=== PATIENT | female | born 1995 | race Caucasian/White ===

== ENCOUNTER → 2023-06-08 | Outpatient (CLI) | payer OTHER ==
--- NOTE | 2023-06-08 16:27 | US ---
EXAMINATION TYPE: Transabdominal DATE OF EXAM: 06/08/2023 3:19 PM COMPARISON: NONE CLINICAL INDICATION: Female, 27 years old with history of Z34.90 ENCNTR FOR SUPRVSN OF NORM; Patient believes she is 10 weeks. G1. EXAM PERFORMED: Transabdominal (TA) EXAM MEASUREMENTS: GESTATIONAL AGE / DATING Physician Established: Not yet established Dates by LMP: Unknown per patient Dates by First Scan: This is first scan Dates by Current Scan for: (11 weeks/2 days) EDC: 12/26/2023 MATERNAL ANATOMY Uterus: 12.3 x 10.6 x 8.7 cm Right Ovary: Appears wnl Left Ovary: Appear wnl Post CDS / Adnexa: Appear wnl Presence of free fluid: None seen Presence of corpus luteal cyst: Not seen Presence of subchorionic bleed: *Complex area seen to the right of the gestational sac: 1.7 x 0.5 x 0 .4 cm. GESTATION / SURVEY CRL: 43.60 mm (11 weeks/2 days) Yolk Sac (normal less than 6mm): 3.6 mm Heart Rate: 167 bpm Rhythm: Normal IUP: Viable IUP Nuchal Translucency 10-14wks (normal less than 3mm): Unable to clearly visualize. Date of LMP: Unknown per patient Beta HcG (if available): Not available IMPRESSION: 1. Single viable intrauterine . 2. Subchorionic hemorrhage.
== END | disposition home or self-care (01) ==
LOC: RADUSWWP 14:43
PROVIDERS: ATTEND Obstetrics & Gynecology
DX: Z34.90 Encounter for supervision of normal pregnancy, unspecified, unspecified trimester (principal)
CPT/HCPCS: 76801

== ENCOUNTER 2023-11-03 12:41 | Outpatient (CLI) | payer OTHER ==
[2023-11-03 14:15] VITALS: BP 128/75; PULSE 108; RESP 16; TEMP 97.7
--- NOTE | 2023-11-13 11:14 | P.MSEPDOC ---
Presenting Problems - Arrival Data Date of Arrival on Unit: 11/03/23 Time of Arrival on Unit: 12:41 Mode of Transport: Ambulatory - Complaint OB-Reason for Admission/Chief Complaint: Pain Comment: RUQ pain x2 weeks, N,V and diarrhea x2 weeks Medical History - Information : 1 Para: 0 Term: 0 : 0 Abortions: Spontaneous or Elective: 0 Number of Living Children: 0 - Gestational Age Gestational Age by SHELLI (wks/days): 32 Weeks and 3 Days Review of Systems - Review of Systems Constitutional: No problems Breast: No problems ENT: No problems Cardiovascular: No problems Respiratory: No problems Gastrointestinal: No problems Genitourinary: No problems Musculoskeletal: No problems Neurological: No problems Skin: No problems Vital Signs - Temperature Temperature: 97.7 F Temperature Source: Temporal Artery Scan - Pulse Right Sitting Pulse Rate: 108 Pulse Assessment Method: Automatic Cuff - Respirations Respiratory Rate: 16 Oxygen Delivery Method: Room Air O2 Sat by Pulse Oximetry: 99 - Blood Pressure Right Arm Blood Pressure: 128/75 Blood Pressure Mean: 92 Blood Pressure Source: Automatic Cuff Medical Screen Scoring - Assessment - Baby A Baseline FHR: 130 Heart Rate - NICHD Category: Category I (Normal) NST: Reactive Physician Notification - Physician Notified Physician Notified Date: 11/03/23 Physician Notified Time: 13:40 Physician: Nadira Billingsley Order Received: Yes (d/c) Maternal Triage Index - Non-Urgent/Priority 4 Non-Urgent Priority 4: Yes Criteria Met for Priority 4: reactive nst, no contractions, vitals wnl Disposition - Disposition OB Disposition: Discharge to home, Written follow up instructions reviewed Discharge Date: 11/03/23 Discharge Time: 13:50 I agree with the RN Medical Screening Exam: Yes Case reviewed; plan agreed upon as documented in EMR&OBIX.: Yes Diagnosis: DIARRHEA, UNSPECIFIED
== END 2023-11-03 13:50 | disposition home or self-care (01) ==
LOC: FBPOP 12:41
PROVIDERS: ATTEND Obstetrics & Gynecology
CPT/HCPCS: 59025; 99213

== ENCOUNTER 2023-12-24 00:33 | Inpatient (IN) | payer OTHER ==
[2023-12-24] MEDS ORDERED: miSOPROStoL 200 MCG TAB RECTAL PRN (01:01)
[2023-12-24] MEDS ORDERED: miSOPROStoL 200 MCG TAB PO PRN (01:01)
[2023-12-24] MEDS ORDERED: CARBOPROST TROMETHAMINE 250 MCG/ML 1 ML AMP IM PRN (01:01)
[2023-12-24] MEDS ORDERED: TRANEXAMIC 1,000 MG/100ML-NACL 1,000 MG in EMPTY BAG 1 BAG IV PRN (01:01)
[2023-12-24] MEDS ORDERED: METHYLERGONOVINE 0.2 MG/ML 1 ML AMP IM PRN (01:01)
[2023-12-24] MEDS ORDERED: OXYTOCIN 10 UNIT/ML 1 ML VIAL IM PRN (01:01)
[2023-12-24] MEDS ORDERED: TERBUTALINE 1 MG/ML VIAL SQ PRN (01:01)
[2023-12-24] MEDS ORDERED: LIDOCAINE 0.5% (PF) 5 MG/ML (50 ML SDV) SQ PRN (01:01)
[2023-12-24] MEDS: LACTATED RINGERS 1,000 ML IV SCH (01:21)
[2023-12-24] MEDS ORDERED: NALBUPHINE 10 MG/ML (10 ML MDV) IV PRN (01:35)
--- NOTE | 2023-12-24 01:40 | P.HPOB ---
History of Present Illness H&P Date: 12/24/23 Chief Complaint: 39-5/7 weeks, spontaneous rupture of membranes, labor The patient is a 28-year-old 1 para 0 admitted at 39-5/7 weeks as established by early ultrasound. She is admitted with documented spontaneous rupture of membranes and active labor at 7 cm of dilation. Her has been entirely uncomplicated and group B strep status is negative. On labor delivery, all signs are reassuring with a category 1 heart rate tracing. Obstetrical history: 1 para 0 with current statistics listed in history of present illness. EDC of 12/26/2023 was established by early ultrasound. Laboratory workup demonstrates a blood type of A+ with a negative antibody screen. Rubella status is immune. The remainder of the laboratory workup was within normal limits. Second trimester Glucola was elevated but followed by a normal 3-hour glucose tolerance test. Group B strep status is negative. Gynecologic history: Unremarkable with no history of any infections to include STDs. Review of Systems Review of systems is confined to history of present illness. Past Medical History Past Medical History: No Reported History History of Any Multi-Drug Resistant Organisms: None Reported Past Surgical History: No Surgical Hx Reported Past Anesthesia/Blood Transfusion Reactions: No Reported Reaction Past Psychological History: No Psychological Hx Reported Smoking Status: Never smoker Past Drug Use History: None Reported Medications and Allergies Home Medications Medication Instructions Recorded Confirmed Type Vit No.179/Iron/Folic 1 each PO 11/03/23 History [ Tablet] Allergies Allergy/AdvReac Type Severity Reaction Status Date / Time No Known Allergies Allergy Verified 11/03/23 12:50 Exam Vital Signs Temp Pulse Resp BP 12/24/23 01:00 97.8 F 88 16 139/87 Intake and Output 12/23/23 12/23/23 12/24/23 14:59 22:59 06:59 Other: Weight 78.925 kg In general, this is a well-developed, well-nourished white female in no acute distress despite being in active labor. Her heart has a regular rhythm and rate without murmur. Her lungs are clear to auscultation bilaterally in all herrmann. Her abdomen is gravid, nondistended, has normal active bowel sounds, soft, nontender, and without any palpable masses aside from the uterine fundus. Her extremities are without any cyanosis, clubbing, or significant edema and are nontender to palpation bilaterally. Digital cervical examination performed by the nursing staff demonstrates her cervix to be 7 cm dilated, 80% effaced, with the vertex and presentation at -2 station. Spontaneous rupture of membranes is documented. Assessment and Plan (1) Spontaneous rupture of amniotic membranes Current Visit: Yes Status: Acute Code(s): [id number] - SNOMED Code(s): 546471476 (2) Active labor at term Current Visit: Yes Status: Acute Code(s): ZGZ0009 - SNOMED Code(s): 91681095 Plan: Patient is admitted for active management of labor. She will have close maternal and surveillance and expectant management will be practiced. She is a good candidate for either IV or epidural analgesia should she so choose. At this time she is declining analgesia.
[2023-12-24 01:48] LABS: Basophils % (A) 0 %; Eosinophils # (A) 0.1 k/uL (0-0.7); Eosinophils % (A) 1 %; HCT 33.5 % (34.0-46.0); Hypochromasia Slight; Lymphocytes # (A) 1.2 k/uL (1.0-4.8); Lymphocytes % (A) 13 %; MCH 26.4 pg (25.0-35.0); MCHC 32.8 g/dL (31.0-37.0); MCV 80.7 fL (80.0-100.0); Mean Platelet Volume 9.7; Monocytes # (A) 0.6 k/uL (0-1.0); Monocytes % (A) 7 %; Neutrophils # (A) 7.4 k/uL (1.3-7.7); Neutrophils % (A) 78 %; Platelet Count 315 k/uL (150-450); RBC 4.15 m/uL (3.80-5.40); RDW 15.1 % (11.5-15.5); WBC 9.5 k/uL (3.8-10.6)
[2023-12-24] MEDS ORDERED: fentaNYL (PF) 50 MCG/ML 5 ML AMP ONE (03:05)
[2023-12-24] MEDS ORDERED: SODIUM CHLORIDE 0.9% 250 ML BAG ONE (03:05)
[2023-12-24] MEDS ORDERED: ROPIVACAINE 5 MG/ML 30 ML VIAL ONE (03:05)
[2023-12-24] MEDS: OXYTOCIN 30 UNITS/500 ML NS 30 UNIT in SALINE 1 500ML.BAG IV SCH (08:39)
[2023-12-24] MEDS ORDERED: diphenhydrAMINE 50 MG/ML 1 ML VIAL IVP PRN ×2 (08:51)
[2023-12-24] MEDS ORDERED: diphenhydrAMINE 50 MG CAP PO PRN (08:51)
[2023-12-24] MEDS ORDERED: ZOLPIDEM 5 MG TAB PO PRN (08:51)
[2023-12-24] MEDS ORDERED: diphenhydrAMINE 25 MG CAP PO PRN (08:51)
[2023-12-24] MEDS ORDERED: LANOLIN CREAM 1 GM TUBE TOPICAL PRN (08:51)
[2023-12-24] MEDS ORDERED: ACETAMINOPHEN TAB 500 MG TAB PO PRN (08:51)
[2023-12-24] MEDS ORDERED: HYDROCORTISONE 2.5% RECTAL CREAM 30 GM TUBE RECTAL PRN (08:51)
[2023-12-24] MEDS ORDERED: SIMETHICONE 80 MG CHEWABLE PO PRN (08:51)
[2023-12-24] MEDS ORDERED: BENZOCAINE/MENTHOL SPRAY 1 GM/SPRAY AEROSOL TOPICAL PRN (08:51)
--- NOTE | 2023-12-24 08:57 | P.PROBDLV ---
Vaginal Delivery Note - . Vaginal Delivery Note: The patient is a 28-year-old 1 para 0 admitted at 39-5/7 weeks by good dating parameters. She is admitted in active labor with all signs reassuring, category 1 heart rate tracing. Her has been entirely uncomplicated and group B strep status is negative. She presented at 7 cm of dilation with documented spontaneous rupture of membranes. She initially declined analgesic intervention but ultimately had a trial of nitrous oxide which failed to help. She then requested epidural analgesia be placed. She made slow progress from 7 cm to complete but ultimately progressed to complete and then pushed over the course of approximately 50 minutes to a normal spontaneous vaginal delivery of a viable 8 pound 4 ounce baby girl with Apgars of 9 at 1 minute and 10 at 5 minutes delivered in the left occiput anterior position. She did have a somewhat compound delivery with the right hand emerging immediately after the head. The placenta was delivered spontaneously, intact, and grossly normal with a grossly normal three-vessel cord inserted ap proximately 3 cm from the margin of the placental disc. There is a small first- degree perineal laceration in the midline which was repaired with a single [id number] stitch of 3-0 chromic catgut. She additionally had a first- degree laceration just above the urethra and below the clitoris which was not bleeding and not repaired. Estimated blood loss for the case was approximately 50 mL. There were no complications. All sponge, instrument, and needle counts were correct. Both mother and infant are resting comfortably in recovery.
[2023-12-24] MEDS: IBUPROFEN 800 MG TAB PO PRN (11:35)
[2023-12-24] MEDS: SENNOSIDES-DOCUSATE SODIUM 1 EACH TAB PO SCH (19:53)
[2023-12-25 01:25] VITALS: RESP 16
[2023-12-25 07:19] LABS: Basophils % (A) 0 %; Eosinophils # (A) 0.1 k/uL (0-0.7); Eosinophils % (A) 1 %; HCT 31.5 % (34.0-46.0); HGB 10.1 gm/dL (11.4-16.0); Hypochromasia Moderate; Lymphocytes # (A) 1.2 k/uL (1.0-4.8); Lymphocytes % (A) 10 %; MCH 26.5 pg (25.0-35.0); MCHC 32.1 g/dL (31.0-37.0); MCV 82.6 fL (80.0-100.0); Mean Platelet Volume 9.4; Monocytes # (A) 0.6 k/uL (0-1.0); Monocytes % (A) 5 %; Neutrophils # (A) 9.9 k/uL (1.3-7.7); Neutrophils % (A) 82 %; Platelet Count 277 k/uL (150-450); RBC 3.82 m/uL (3.80-5.40); RDW 15.2 % (11.5-15.5)
--- NOTE | 2023-12-25 07:37 | P.DS ---
Providers Date of admission: 12/24/23 00:51 Expected date of discharge: 12/25/23 Attending physician: Nadira Billingsley Primary care physician: Stated None - Discharge Diagnosis(es) (1) Status post normal vaginal delivery Current Visit: Yes Status: Acute Hospital Course: pt seen and examined. Denies N/V, F/C, CP, SOB or calf pain. Plan - Discharge Summary New Discharge Prescriptions: New Ibuprofen [Motrin] 800 mg PO Q8HR PRN #30 tab PRN Reason: Pain No Action Vit No.179/Iron/Folic [ Tablet] 1 each PO Discharge Medication List Vit No.179/Iron/Folic [ Tablet] 1 each PO 11/03/23 [History] Ibuprofen [Motrin] 800 mg PO Q8HR PRN #30 tab 12/25/23 [Rx] Follow up Appointment(s)/Referral(s): Nadira Billingsley DO [Doctor of Osteopathic Medicine] - 6 Weeks Discharge Disposition: HOME SELF-CARE
[2023-12-25 08:54] VITALS: BP 124/87; PULSE 75; TEMP 97.6
== END 2023-12-25 13:10 | disposition home or self-care (01) | DRG 560 ==
LOC: FBPOP 00:33 → 4FBP 00:51
PROVIDERS: ADMIT Obstetrics & Gynecology; ATTEND Obstetrics & Gynecology
PROC: 10E0XZZ Delivery of Products of Conception, External Approach (ICD-10-PCS; principal; 2023-12-24)
DX: O80 Encounter for full-term uncomplicated delivery (principal); Z37.0 Single live birth; Z3A.39 39 weeks gestation of pregnancy
CPT/HCPCS: 84112; 85025; 86850; 86900; 86901; 99213